=== PATIENT | female | born 1955 | race Caucasian/White ===

== ENCOUNTER 2018-12-13 13:44 | Observation (INO) | payer OTHER ==
[~2018-12-13] VITALS: Ht 156.2 cm; Wt 56.7 kg
[2018-12-13 14:07] LABS: BASOPHILS % 0.3 % (0.0-1.0); EOSINOPHILS # (AUTO) 0.1 (0.0-0.4); EOSINOPHILS % 1.2 % (0.0-6.0); HEMOGLOBIN 12.5 g/dL (12.0-16.0); LYMPHOCYTES # (AUTO) 1.8 (1.0-3.2); LYMPHOCYTES % 30.4 % (18.0-39.1); MEAN CORPUSCULAR HEMOGLOBIN 30.4 pg (28-32); MEAN CORPUSCULAR HGB CONC 32.9 g/dL (31-35); MEAN CORPUSCULAR VOLUME 92.5 fL (81-99); MONOCYTES # (AUTO) 0.5 (0.2-0.8); MONOCYTES % 8.1 % (4.4-11.3); NEUTROPHILS # (AUTO) 3.6 (2.1-6.9); NEUTROPHILS % 59.7 % (38.7-80.0); PLATELET COUNT 211 x10e3/uL (140-360); RED BLOOD COUNT 4.11 x10e6/uL (3.6-5.1); RED CELL DISTRIBUTION WIDTH 12.7 % (11.7-14.4)
[2018-12-13 14:15] LABS: INR 0.87; PROTHROMBIN TIME 12.3 seconds (11.9-14.5)
[2018-12-13 14:27] LABS: ALANINE AMINOTRANSFERASE 11 IU/L (0-55); ALBUMIN 3.5 g/dL (3.5-5.0); ALKALINE PHOSPHATASE 73 IU/L (40-150); AMYLASE 64 U/L (25-125); ANION GAP 8.4 mmol/L (8-16); BLOOD UREA NITROGEN 15 mg/dL (7-26); BUN/CREATININE RATIO 19 (6-25); CALCIUM 8.4 mg/dL (8.4-10.2); CARBON DIOXIDE 27 mmol/L (22-29); CHLORIDE 106 mmol/L (98-107); CREATINE KINASE 48 IU/L (29-168); CREATININE, SERUM 0.77 mg/dL (0.57-1.11); EST GLOMERULAR FILTRATION RATE > 60 ML/MIN (60-); GLUCOSE 97 mg/dL (74-118); LIPASE 46 U/L (8-78); POTASSIUM 3.4 mmol/L (3.5-5.1); SODIUM 138 mmol/L (136-145)
[2018-12-13 14:40] LABS: B-TYPE NATRIURETIC PEPTIDE2 60.1 pg/mL (0-100); CLARITY,URINE SL CLOUDY (CLEAR); COLOR,URINE YELLOW (YELLOW); LEUKOCYTE ESTERASE ,URINE NEGATIVE (NEGATIVE); NITRITE,URINE NEGATIVE (NEGATIVE)
[2018-12-13 14:41] LABS: BILIRUBIN,URINE NEGATIVE (NEGATIVE); KETONES,URINE NEGATIVE (NEGATIVE); PROTEIN,URINE DIPSTICK NEGATIVE (NEGATIVE); URINE UROBILINOGEN 0.2 mg/dL (0.2 - 1)
[2018-12-13 14:50] LABS: BACTERIA,URINE MANY /HPF; EPITHELIAL CELLS,URINE FEW /LPF; HYALINE CASTS 0-1 (0-1); MUCUS,URINE FEW (RARE)
[2018-12-13] MEDS ORDERED: POTASSIUM CHLORIDE 20 MEQ TAB CR PO ONE (15:30)
--- NOTE | 2018-12-13 16:14 | Diagnostic Imaging Report ---
EXAMINATION: CHEST SINGLE (PORTABLE) INDICATION: Back pain radiating anteriorly. COMPARISON: None FINDINGS: TUBES and LINES: None. LUNGS: The lungs are hyperinflated. Small high density nodule at the left costophrenic angle may represent calcified granuloma. There is no evidence of pneumonia or pulmonary edema. PLEURA: No pleural effusion or pneumothorax. HEART AND MEDIASTINUM: The cardiomediastinal silhouette is unremarkable. BONES AND SOFT TISSUES: No acute osseous lesion. Soft tissues are unremarkable. UPPER ABDOMEN: No free air under the diaphragm. IMPRESSION: No acute radiographic abnormality. Hyperinflated lungs, which may represent emphysema. Signed by: Dr. Sheri Lance MD on 12/13/2018 4:11 PM
--- NOTE | 2018-12-13 16:53 | Diagnostic Imaging Report ---
EXAM: Right upper quadrant abdominal ultrasound INDICATION: Abdominal pain. COMPARISON: None. TECHNIQUE: Transverse and longitudinal images of the right upper quadrant abdomen were obtained FINDINGS: Liver: Size: Measures 10 cm in the right midclavicular line, normal Appearance: Normal echogenicity, smooth contour Mass: No focal masses Gallbladder: No distention, pericholecystic fluid, wall thickening, stone, or reported sonographic Frias's sign. Gallbladder wall measures 0.2 cm. Bile Ducts: Intrahepatic Ducts: No dilatation Extrahepatic Ducts: Common bile duct measures 0.5 cm, no dilatation Pancreas: Visualized portions of the pancreatic head, neck and proximal body are normal. Kidney: The right kidney measures 10.2 cm without evidence of hydronephrosis or stone. Vessels: Aorta: Visualized portions are normal Inferior Vena Cava: Visualized portions are normal Main Portal Vein: 0.8 cm, normal size with hepatopetal flow. Free Fluid: No evidence of ascites. IMPRESSION: Unremarkable right upper quadrant abdominal ultrasound. Signed by: Dr. Sheri Lance MD on 12/13/2018 4:50 PM
[2018-12-13] MEDS ORDERED: DONNATAL/LIDOCAINE/MAALOX 30 ML SUSP PO ONE (17:00)
[2018-12-13] MEDS ORDERED: DONNATAL/LIDOCAINE/MAALOX 30 ML SUSP PO SCH ×2 (17:45)
[2018-12-13] MEDS ORDERED: ONDANSETRON HCL INJ 2MG/ML 2ML 2 MG/ML VIAL IV PRN (18:45)
[2018-12-13] MEDS ORDERED: ASPIRIN 81 MG CHEW TAB PO ONE (18:45)
[2018-12-13] MEDS ORDERED: NITROGLYCERIN 0.4 MG SUBL SL PRN (18:45)
[2018-12-13] MEDS ORDERED: SODIUM CHLORIDE FLUSH 10 ML SYR INJ PRN (18:45)
[2018-12-13] MEDS ORDERED: MORPHINE SULFATE 2 MG/ML SYR 1ML IV PRN (18:45)
[2018-12-13] MEDS: FAMOTIDINE 20 MG TAB PO SCH (18:49)
--- OUTSIDE RECORDS SUMMARY | 2018-12-13 19:00 | XMS REPORT ---
[facility] Address Unknown Phone Unavailable Care Team Providers Care Family Preservation Worker Name Role Phone Gagandeep GARCIA Unavailable Unavailable Problems This patient has no known problems. Allergies, Adverse Reactions, Alerts This patient has no known allergies or adverse reactions. Medications This patient has no known medications. Results Test Description Test Time Test Comments Text Results Atomic Results Result Comments US GALLBLADDER 2018-12-13 16:47:00 [place] [id number] Patient Name: JONATHON CROWLEY MR #: [id number] : 1955 Age/Sex: 63/F Req #: [id number] Adm Physician: Ordered by: ERAN RICHARDS SKATE BOARDER Report #: [id number] Location: ER Room/Bed: Procedure: [id number] US/US GALLBLADDER Exam Date: 12/13/18 Exam Time: 1435 REPORT STATUS: Signed EXAM: Right upper quadrant abdominal ultrasound INDIC ATION: Abdominal pain. COMPARISON: None. TECHNIQUE: Transverse and longitudinal images of the right upper quadrant abdomen were obtained FINDINGS: Liver: Size: Measures 10 cm in the right midclavicular line, normal Appearance: Normal echogenicity, smooth contour Mass: No focal masses Gallbladder: No distention, pericholecystic fluid, wall thickening, stone, or reported sonographic Frias's sign. Gallbladder wall measures 0.2 cm. Bile Ducts: Intrahepatic Ducts: No dilatation Extrahepatic Ducts: Common bile duct measures 0.5 cm, no dilatation Pancreas: Visualized portions of the pancreatic head, neck and proximal body are normal. Kidney: The right kidney measures 10.2 cm without evidence of hydronephrosis or stone. Vessels: Aorta: Visualized portions are normal Inferior Vena Cava: Visualized portions are normal Main Portal Vein: 0.8 cm, normal size with hepatopetal flow. Free Fluid: No evidence of ascites. IMPRESSION: Unremarkable right upper quadrant abdominal ultrasound. Signed by: Dr. Juani Mckeon MD on 12/13/2018 4:50 PM Dictated By: JUANI MCKEON MD 49 Transcribed By: ION on 12/13/181649 COPY TO: ERAN RICHARDS NP CHEST SINGLE (PORTABLE) 2018-12-13 16:09:00 [place] [id number] Patient Name: JONATHON CROWLEY MR #: [id number] : 1955 Age/Sex: 63/F Req #: [id number] Adm Physician: Ordered by: ERAN RICHARDS NP Report #: [id number] Location: ER Room/Bed: Procedure: [id number] DX/CHEST SINGLE (PORTABLE) Exam Date: 12/13/18 Exam Time: 1420 REPORT STATUS: Signed EXAMINATION: CHEST SINGLE (PORTABLE) IN DICATION: Back pain radiating anteriorly. COMPARISON: None FINDINGS: TUBES and LINES: None. LUNGS: The lungs are hyperinflated. Small high density nodule at the left costophrenic angle may represent calcified granuloma. There is no evidence of pneumonia or pulmonary edema. PLEURA: No pleural effusion or pneumothorax. HEART AND MEDIASTINUM: The cardiomediastinal silhouette is unremarkable. BONES AND SOFT TISSUES: No acute osseous lesion. Soft tissues are unremarkable. UPPER ABDOMEN: No free air under the diaphragm. IMPRESSION: No acute radiographic abnormality. Hyperinflated lungs, which may represent emphysema. Signed by: Dr. Juani Mckeon MD on 12/13/2018 4:11 PM Dictated By: JUANI MCKEON MD 1611 Transcribed By: ION on 12/13/18 1611 COPY TO: ERAN RICHARDS NP
--- NOTE | 2018-12-13 19:01 | NUR ---
Walking rounds with OSVALDO Martinez. Patient in no distress at this time.
[2018-12-13] MEDS ORDERED: HYDROCODON-ACE1 EA12 PO (19:11)
[2018-12-13] MEDS ORDERED: BUPROPION XL150 MG PO (19:11)
[2018-12-13] MEDS ORDERED: SUMATRIPTAN SU100 MG PO (19:11)
[2018-12-13] MEDS ORDERED: ESTRADIOL2 MG PO (19:11)
[2018-12-13] MEDS ORDERED: LEVOTHYROXINE75 MCG PO (19:11)
[2018-12-13 20:43] VITALS: BP 132/70
--- NOTE | 2018-12-13 21:45 | NUR ---
Pt received from ER. Pt A&O and in no apparent distress. Pt on tele #6 and room air. Pt has slight complaints of chest pain that are dull but sharp, rates 3 out of 10 on pain scale. All safety measures ensured and pt call alejandre near. Pt encouraged to use call alejandre for assistance.
[2018-12-13] MEDS: MORPHINE SULFATE INJ 4 MG/ML INJ 1ML IV PRN (22:33)
[2018-12-13 23:50] LABS: CREATINE KINASE MB 0.6 ng/mL (0-5.0)
[2018-12-14] VITALS (9 sets, daily range): BP systolic 101–141; BP diastolic 50–73
[2018-12-14 05:39] LABS: BASOPHILS % 0.6 % (0.0-1.0); EOSINOPHILS # (AUTO) 0.2 (0.0-0.4); EOSINOPHILS % 2.2 % (0.0-6.0); HEMATOCRIT 34.4 % (34.2-44.1); HEMOGLOBIN 11.3 g/dL (12.0-16.0); LYMPHOCYTES # (AUTO) 2.5 (1.0-3.2); LYMPHOCYTES % 37.6 % (18.0-39.1); MEAN CORPUSCULAR HEMOGLOBIN 30.3 pg (28-32); MEAN CORPUSCULAR HGB CONC 32.8 g/dL (31-35); MEAN CORPUSCULAR VOLUME 92.2 fL (81-99); MONOCYTES # (AUTO) 0.8 (0.2-0.8); MONOCYTES % 11.2 % (4.4-11.3); NEUTROPHILS # (AUTO) 3.2 (2.1-6.9); NEUTROPHILS % 48.1 % (38.7-80.0); PLATELET COUNT 187 x10e3/uL (140-360); RED BLOOD COUNT 3.73 x10e6/uL (3.6-5.1); RED CELL DISTRIBUTION WIDTH 12.9 % (11.7-14.4)
[2018-12-14 05:57] LABS: ANION GAP 8.4 mmol/L (8-16); BLOOD UREA NITROGEN 12 mg/dL (7-26); BUN/CREATININE RATIO 15 (6-25); CALCIUM 8.1 mg/dL (8.4-10.2); CARBON DIOXIDE 27 mmol/L (22-29); CHLORIDE 107 mmol/L (98-107); CHOL/HDL RATIO 2.7 (3.0-3.6); CHOLESTEROL 184 MD/DL (0-199); CREATININE, SERUM 0.78 mg/dL (0.57-1.11); EST GLOMERULAR FILTRATION RATE > 60 ML/MIN (60-); GLUCOSE 91 mg/dL (74-118); HDL CHOLESTEROL 68 MG/DL (40-60); LDL CHOLESTEROL 89 MG/DL (60-130); POTASSIUM 4.4 mmol/L (3.5-5.1); SODIUM 138 mmol/L (136-145); TRIGLYCERIDES 137 MG/DL (0-149)
[2018-12-14 06:04] LABS: CREATINE KINASE MB 0.7 ng/mL (0-5.0)
[2018-12-14] MEDS: FAMOTIDINE 20 MG TAB PO SCH ×2 (06:10→18:18)
--- NOTE | 2018-12-14 07:10 | NUR ---
Report given and walking rounds complete.
[2018-12-14] MEDS: ASPIRIN 81 MG ENTERIC COATED PO SCH (08:20)
--- NOTE | 2018-12-14 11:25 | NUR ---
patient leaving floor via wheelchair for stress test. Patient alert and oriented and in stable condition.
--- NOTE | 2018-12-14 11:45 | NUR ---
patient arrived back on floor via wheelchair, patient alert and oriented and in stable condition. Call alejandre within reach, bed in lowest position and family at bedside.
[2018-12-14 14:00] LABS: CREATINE KINASE MB 0.8 ng/mL (0-5.0)
--- NOTE | 2018-12-14 14:46 | NUR ---
SOCIAL WORK INITIAL ASSESSMENT Jewelry Appraiser to bedside to discuss plan of care with patient/family. CM/SW role and care transitions discussed. Anticipated discharge plan discussed along with duration of care. CM/SW discussed patients right to make decisions in care. CM/SW work hours given. 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 Name and number was also written on the patients whiteboard. Patient verbalized understanding of discussion. CM will follow-up with ongoing discharge and transition of care needs.
[2018-12-14] MEDS: MORPHINE SULFATE INJ 4 MG/ML INJ 1ML IV PRN ×3 (14:47→22:05)
--- NOTE | 2018-12-14 16:23 | NUR ---
patient leaving the floor for scans via wheelchair. Patient alert and oriented and in stable condition.
--- NOTE | 2018-12-14 16:51 | NUR ---
patient back on the unit, alert and oriented. Call alejandre within reach and bed in lowest position.
--- NOTE | 2018-12-14 17:11 | Diagnostic Imaging Report ---
EXAMINATION: CT of the abdomen and pelvis with contrast. TECHNIQUE: Spiral CT images of the abdomen and pelvis were performed from the lung bases to the lesser trochanters after the intravenous administration of 100 cc of Isovue-370. Coronal and sagittal reformatted images were obtained. COMPARISON: None. CLINICAL HISTORY:Abdominal pain in a 63-year-old female DISCUSSION: ABDOMEN/PELVIS: LOWER THORAX:Unremarkable. HEPATOBILIARY: No focal hepatic lesions. No intra or extrahepatic biliary ductal dilation. GALLBLADDER: No radio-opaque stones or sludge. No wall thickening. SPLEEN: No splenomegaly. PANCREAS: No focal masses or ductal dilatation. ADRENALS: No adrenal nodules. KIDNEYS/URETERS: No hydronephrosis. The presence of IV contrast limits evaluation for renal calculi, however none are visualized. No ureteral or bladder calculi are seen. PELVIC ORGANS/BLADDER: The bladder is normal. Bilateral ovarian cysts are present measuring up to 2.7 cm on the left. PERITONEUM/RETROPERITONEUM: No free air or fluid. LYMPH NODES: No intra-abdominal, retroperitoneal, pelvic or inguinal lymphadenopathy. VESSELS: The celiac trunk,superior and inferior mesenteric and bilateral renal arteries are patent The portal, superior mesenteric and splenic veins are patent. GI TRACT: No distention or wall thickening. BONES AND SOFT TISSUE: No bony destructive lesions. No soft tissue abnormalities. IMPRESSION: No acute intra-abdominal process is identified. Signed by: Miguel Cano MD on 12/14/2018 5:08 PM
--- NOTE | 2018-12-14 17:17 | Diagnostic Imaging Report ---
Exam: Chest with contrast PE protocol TECHNIQUE: CT scan of the chest WITH intravenous contrast, using PE protocol. The chest was scanned utilizing a multidetector helical scanner from the lung apex through the level of the adrenal glands after the IV administration of 100 cc of Isovue-370. Thin section reconstructions were obtained with special concentration on the pulmonary arteries. Coronal and sagittal reformations were obtained. COMPARISON: none INDICATION: 63-year-old female with chest pain, rule out PE DISCUSSION: Lungs: The lungs are well inflated. Small calcified granuloma in the right costophrenic sulcus. No filling defects are identified within the pulmonary arteries to the segmental level. Airways: The major airways are clear. Pleura: There is no evidence of pleural effusion or pneumothorax. Heart and mediastinum: The heart and the mediastinum are normal. No mediastinal or hilar lymphadenopathy. Abdomen: The visualized parts of the upper abdomen are unremarkable. Bones and soft tissues: No acute bony abnormalities. IMPRESSION: No evidence of pulmonary embolism or acute pulmonary process. Signed by: Miguel Cano MD on 12/14/2018 5:13 PM
[2018-12-14] MEDS ORDERED: SODIUM CHLORIDE 0.9% 50ML 50 ML ONE (18:16)
[2018-12-14] MEDS ORDERED: IOPAMIDOL 370 MG/ML 200 ML INFUS..BTL INJ ONE (18:17)
--- NOTE | 2018-12-14 18:21 | Consultation ---
DATE OF CONSULTATION: 12/14/2018 Cardiac Consultation REASON FOR CONSULTATION: Chest pain. HISTORY OF PRESENT ILLNESS: This is a 63-year-old lady, who is relatively healthy. She does have hypothyroidism and past history of anxiety. She does have repeated migraines, severe headaches and she takes Imitrex for that. The patient in her usual status of health. She is relatively active, not sedentary, although she does not exercise regularly. Yesterday, she had all suddenly episode of sharp severe pain of the right lower chest, radiating to the back. The patient felt with that diaphoresis and not so well. "People told her she is looking very pale," however, this subsided. There was no nausea, no vomiting. No pleuritic type of pain. Then, she had three episodes similar. She was alarmed, she came to the emergency room, admitted for further management, cardiac consultation was obtained. The patient denied having any prior angina. There is no shortness of breath on exertion, probably class II. There is no orthopnea, no paroxysmal nocturnal dyspnea, no syncope, no presyncope. REVIEW OF SYSTEMS: Done to all 14 systems, will be summarized for clarity. GENERAL: No fever. No chills. No recent cold. No recent travel. HEENT: No congestion. No hearing problem. No vision problem. No blurry vision. CARDIAC AND PULMONARY: As per acute illness. No cough. No hemoptysis. No pleuritic or pericardial chest pain. No anginal chest pain. No palpitation. No syncope or presyncope. GI: As per acute illness. No hematemesis. No melena. : No hematuria. No dysuria. No changes in the urine color. HEMATOLOGY: No easy bruising or bleeding. ENDOCRINE: The patient does have history of hypothyroidism, but no diabetes mellitus. Rest of review of systems unremarkable. HOME MEDICATONS: Wellbutrin, estradiol, Synthroid 75 mcg a day, and Imitrex p.r.n. ALLERGIES: LEVAQUIN AND PENICILLIN. PAST MEDICAL HISTORY: 1. Migraine. 2. Hypothyroidism. 3. Past history of anxiety. FAMILY HISTORY: Father of CVA at the age of 68. Mother of lung cancer at the age of 66. Four siblings, two brothers, and two sisters, they are all healthy. Five kids, four sons, and one daughter, they are all healthy. PHYSICAL EXAMINATION: VITAL SIGNS: Height of 5 feet 2 inches, weight of 125 pounds. Blood pressure 110/60, heart rate of 60, and respiratory rate of 18. HEENT: Pupils are equal and reactive. NECK: No elevation of jugular venous pulsation. No bruit. CHEST: Clear to auscultation and percussion. HEART: PMI in fifth left intercoastal space. Normal first and second heart sounds. ABDOMEN: Soft. There are good bowel sounds. No organomegaly. No abdominal bruits. EXTREMITIES: No clubbing. No edema. No signs of deep venous thrombosis. No delay between pulses. NEUROLOGIC: Nonfocal. LABORATORY DATA: Sodium of 158, potassium 4.4, BUN 12, creatinine of 0.8. White blood cell count of 6.7, hemoglobin of 11.3, hematocrit 34%, and platelet count of 187,000. Triglycerides of 137, cholesterol of 184, HDL of 68, LDL of 89. EKG showing normal sinus rhythm. BMP of 60. Three sets of cardiac enzymes are all normal. IMPRESSION AND PLAN: 1. Atypical chest pain for coronary artery disease. 2. Migraine. Cardiac denis, my recommendation will be to check a cardiac stress test and an echocardiogram, probably evaluation for gallbladder disease will be warranted or other causes for pain. Differential diagnosis discussed with the patient and her daughter. The patient is scheduled for cardiac stress test. MD JAYLAN Champagne/ROMEL /[id number]
--- NOTE | 2018-12-14 18:36 | Operative Report ---
DATE OF PROCEDURE: 12/14/2018 SURGEON: Kamron Roca MD TITLE OF THE TEST: Cardiac stress test. TECHNICAL DETAILS: The protocol is Maxime with target heart rate at 153 per minute. RESULTS: 1. The patient exercised for a total of 5 minutes and 37 seconds. 2. Heart rate increased from 66 per minute to 154. 3. Blood pressure increased from 110/72 to 137/74. No chest pain. 4. No EKG changes. IMPRESSION: Negative cardiac stress test with good exercise tolerance. Limitations are discussed and explained to the patient and her daughter. Kamron Roca MD MOJ/MODL /[id number]
--- NOTE | 2018-12-14 19:05 | NUR ---
rounded with vacuum evaporation operator nurse, patient aware of change. Call alejandre within reach and bed in lowest position.
--- NOTE | 2018-12-14 19:20 | NUR ---
Report received and walking complete. Pt returning from restroom, and in no apparent distress. All safety measured and pt call alejandre near.
[2018-12-15 04:17] VITALS: BP 97/52
[2018-12-15] MEDS: FAMOTIDINE 20 MG TAB PO SCH (06:07)
--- NOTE | 2018-12-15 07:04 | NUR ---
Report given and walking rounds complete.
[2018-12-15 07:25] VITALS: BP 110/61
[2018-12-15] MEDS ORDERED: SODIUM CHLORIDE 0.9% 1000ML 1,000 ML IV SCH ×2 (10:00→14:50)
[2018-12-15 11:17] VITALS: BP 136/74
[2018-12-15] MEDS ORDERED: MIDAZOLAM HCL 2 MG/2 ML VIAL ONE (13:40)
[2018-12-15] MEDS ORDERED: LIDOCAINE HCL 2% LOCAL 20 ML VIAL ONE (13:41)
[2018-12-15] MEDS ORDERED: FENTANYL CITRATE/PF 100MCG/2 ML INJ ONE (13:41)
[2018-12-15] MEDS ORDERED: HEPARIN SOD/SOD CHLORIDE 2,000 ML ONE (13:41)
[2018-12-15] MEDS ORDERED: IOPAMIDOL 370 MG/ML 200 ML INFUS..BTL INJ ONE (13:41)
[2018-12-15 15:06] VITALS: BP 154/69
[2018-12-15] MEDS: ASPIRIN 81 MG ENTERIC COATED PO SCH (17:06)
[2018-12-15 19:45] VITALS: BP 143/70
--- NOTE | 2018-12-15 22:57 | Operative Report ---
DATE OF PROCEDURE: 12/15/2018 SURGEON: Lynette Roca MD PROCEDURES PERFORMED: 1. Left heart cardiac catheterization with coronary angiography. 2. Left ventriculography. OPERATORS: Lynette Roca MD. INDICATION FOR PROCEDURE: A 63-year-old female, who presents to this institution with repetitive escalating chest pain symptoms. She describes this as a substernal pressure, squeezing, radiating to the neck, occurring at rest. The patient continued to have symptoms here in the hospital. We are highly concerned that she may have an unstable angina pectoris versus vasospastic coronary artery disease. DESCRIPTION OF PROCEDURE: After risks, benefits, pros and cons to this procedure were explained, the procedure agreed to proceed. The patient was brought to the cardiac catheterization laboratory and the right groin was prepped and draped in the usual sterile fashion. A 1% lidocaine solution was used to numb the right groin and access to the right femoral artery was obtained and a 4-Italian femoral sheath was placed. Selective coronary angiography of the venetie ira left and right coronary arteries were done with a 4F JL4 and 3DRC catheter respectively. Afterwards an angled pigtail catheter was placed in the Left Ventricle for Ventriculography and hemodynamic assessment of ventricular filling pressures. After noting no significant CAD, we decided to conclude the case. The sheath was then upsized to a 5-Italian femoral sheath for attempted vascade closure; however the plug remained on the delivery device, so we converted over to manual compression, and the manual compression was applied successfully achieving hemostasis. COMPLICATIONS: None. ESTIMATED BLOOD LOSS: None. FINDINGS: 1. Left Main is angiographically normal and gives rise to the LAD and circumflex branch. 2. LAD and its branches are largely angiographically normal. 3. Left circumflex branch is angiographically normal. 4. RCA is dominant and gives rise to right PDA and right PLV branch. This vessel and its branches are angiographically normal. 5. Left ventricular ejection fraction is 55% with end diastolic pressure of 12 mmHg. There is no significant LV to aortic pullback gradient. PLAN/RECOMMENDATIONS: 1. Overall, the patient's coronary arteries are largely patent and despite the patient continued to have chest pain symptoms with features very typical for angina, suspect that we need to entertain vasospastic angina as a potential etiology of her symptoms. 2. We will recommend just calcium channel yaz therapy. 3. Aggressive risk factor modification and medical therapy. 4. Six-hour bed rest postprocedure today. MD DES Soto/MARTIR /[id number]
== END 2018-12-15 20:43 | disposition home or self-care (01) ==
LOC: ER 13:44 → ERHOLD 18:57 → IMCU 19:44
PROVIDERS: ADMIT Internal Medicine; ATTEND Internal Medicine
DX: R07.89 Other chest pain (principal); Z88.1 Allergy status to other antibiotic agents; Z88.0 Allergy status to penicillin; Z87.891 Personal history of nicotine dependence; Z82.49 Family history of ischemic heart disease and other diseases of the circulatory system; G43.909 Migraine, unspecified, not intractable, without status migrainosus; G44.89 Other headache syndrome
CPT/HCPCS: 36415 ×2; 71045; 71260; 74177; 76705; 80048; 80053; 80061; 81001; 82150; 82550 ×2; 82553 ×2; 83605; 83690; 83735; 83880; 84484 ×2; 85025 ×2; 85610; 85730; 93005; 93017; 93306; 93458; 99284; G0378 ×3; J2001; J2250; J2270 ×2; J2405 ×2; J7030; Q9967 ×2; C1760; C1766